=== PATIENT | female | born 1965 | race African-American/Black ===

== ENCOUNTER 2018-11-05 21:24 | Emergency (ER) | payer OTHER ==
[2018-11-05 21:36] VITALS: BP 147/76
[2018-11-05] MEDS ORDERED: MOME17SP NS (21:39)
[2018-11-05] MEDS ORDERED: AMOX1TAB61 PO (21:39)
--- NOTE | 2018-11-05 21:43 | PHYS DOC ---
Adult General Chief Complaint Chief Complaint cough HPI HPI 53 years old female presented emergency department with the runny nose, cough, nasal discharge Review of Systems Review of Systems Constitutional: Denies fever or chills [] Eyes: Denies change in visual acuity, redness, or eye pain [] HENT: Denies nasal congestion or sore throat [] Respiratory: Denies cough or shortness of breath [] Cardiovascular: No additional information not addressed in HPI [] GI: Denies abdominal pain, nausea, vomiting, bloody stools or diarrhea [] : Denies dysuria or hematuria [] Musculoskeletal: Denies back pain or joint pain [] Integument: Denies rash or skin lesions [] Neurologic: Denies headache, focal weakness or sensory changes [] Endocrine: Denies polyuria or polydipsia [] All other systems were reviewed and found to be within normal limits, except as documented in this note. Physical Exam Physical Exam Constitutional: Well developed, well nourished, no acute distress, non-toxic appearance. [] HENT: Normocephalic, atraumatic, bilateral external ears normal, oropharynx moist, no oral exudates, nose normal. [] Eyes: PERRLA, EOMI, conjunctiva normal, no discharge. [] Neck: Normal range of motion, no tenderness, supple, no stridor. [] Cardiovascular:Heart rate regular rhythm, no murmur [] Lungs & Thorax: Bilateral breath sounds clear to auscultation [] Abdomen: Bowel sounds normal, soft, no tenderness, no masses, no pulsatile masses. [] Skin: Warm, dry, no erythema, no rash. [] Back: No tenderness, no CVA tenderness. [] Extremities: No tenderness, no cyanosis, no clubbing, ROM intact, no edema. [] Neurologic: Alert and oriented X 3, normal motor function, normal sensory function, no focal deficits noted. [] Psychologic: Affect normal, judgement normal, mood normal. [] EKG EKG [] Radiology/Procedures Radiology/Procedures [] Course & Med Decision Making Course & Med Decision Making Pertinent Labs and Imaging studies reviewed. (See chart for details) [] Final Impression Final Impression [] Problems: (1) Acute sinusitis Qualifiers: Qualified Codes: J01.00 - Acute maxillary sinusitis, unspecified Dragon Disclaimer Dragon Disclaimer This electronic medical record was generated, in whole or in part, using a voice recognition dictation system. ASHU GODWIN MD Nov 05, 2018 21:42
== END 2018-11-05 21:45 | disposition home or self-care (01) ==
LOC: ER 21:24
DX: J01.00 Acute maxillary sinusitis, unspecified (principal)
CPT/HCPCS: 99283